=== PATIENT | male | born 1990 | race Caucasian/White ===

== ENCOUNTER 2016-07-19 22:22 | Emergency (ER) | payer SELFPAY ==
[~2016-07-19] VITALS: Ht 177.8 cm; Wt 146.5 kg
[2016-07-19 22:25] VITALS: Ht 177.8 cm; Wt 146.5 kg
[2016-07-19] MEDS ORDERED: ONDANSETRON 4 MG INJ IV STA (23:42)
[2016-07-19] MEDS ORDERED: SOD CHLORIDE 0.9% 1,000 ML IV STA (23:42)
[2016-07-19] MEDS ORDERED: morphine 4 MG/ML VIAL IV STA (23:42)
--- NOTE | 2016-07-20 00:37 | RADRPT ---
PROCEDURE: XR Abdomen. CLINICAL INDICATION: Abdominal pain. TECHNIQUE: AP abdomen x-ray. COMPARISON: None. FINDINGS: The bowel gas pattern is unremarkable. There is no evidence of free air or obstruction. There are no abnormal calcifications overlying the urinary tracts. The osseus structures are unremarkable. The g allbladder is surgically absent. IMPRESSION: No free air or obstruction. RPTAT:AAJJ Kumar Ramirez Physician Date Time Electronically viewed and signed by Physician Gabi on 07/20/2016 00:36 IRAM/
[2016-07-20 01:21] LABS: BASOPHIL # 0.1 10^3/ul (0.0-0.1); BASOPHILS % 0.5 % (0.0-2.0); EOSINOPHILS # 0.1 10^3/ul (0.0-0.5); EOSINOPHILS % 0.8 % (0.0-7.0); HEMATOCRIT 42.6 % (42.0-52.0); HEMOGLOBIN 14.5 g/dl (14.0-18.0); LYMPHOCYTES % 22.3 % (15.0-51.0); MEAN CORPUSCULAR HEMOGLOBIN 26.6 pg (29.0-33.0); MEAN CORPUSCULAR HGB CONC 34.1 g/dl (32.0-37.0); MEAN CORPUSCULAR VOLUME 77.9 fl (82.0-101.0); MONOCYTE # 1.3 10^3/ul (0.3-0.9); MONOCYTES % 9.7 % (0.0-11.0); NEUTROPHILS % 66.7 % (39.0-77.0); PLATELET COUNT 211 10^3/UL (140-440); RED BLOOD COUNT 5.46 10^6/ul (4.70-6.10); RED CELL DISTRIBUTION WIDTH 13.7 % (11.5-14.5); UNCORRECTED WBC 13.5 10^3/ul (4.8-10.8); WHITE BLOOD COUNT 13.5 10^3/ul (4.8-10.8)
--- NOTE | 2016-07-20 01:21 | RADRPT ---
PROCEDURE: CT scan of the abdomen and pelvis without IV contrast. CLINICAL INDICATION: Abdominal pain. TECHNIQUE: Thin section axial, coronal and sagittal images were performed through the abdomen and pelvis without contrast Radiation Dose: CTDI 23.82 mGy and DLP: 1642.28 mGy-cm One of the following dose reduction techni ques were utilized: Automated dense exposure control, adjustment of the mA and/or kV according to p atient's size, use of iterative reconstruction technique COMPARISON: None FINDINGS: CT abdomen: The lung bases are clear and visualized heart and pericardium normal. 5 mm noncalcified left lower l obe pulmonary nodule in the lateral basal segment peripherally. The gallbladder is surgically absent. There is diffuse low attenuation liver suggestive of fatty i nfiltration. The spleen, adrenal glands, and pancreas are normal in size and attenuation without focal lesion. No evidence of intrahepatic biliary ductal dilatation is identified. Normal appearance of the macarena hepatis. The kidneys are normal in size and contour without parenchymal abnormality. No obstructive uropathy. Normal caliber abdominal aorta. Aortic vascular calcification. No retroperitoneal or mesenteric lymp hadenopathy or ascites. Normal caliber bowel without evidence of obstruction. Normal appearance of the bowel mesenteric. CT pelvis: Normal appendix. Extensive sigmoid diverticulosis without mural thickening and extensive surrounding fat stranding an d inflammation compatible with phlegmonous changes in the region secondary to acute diverticulitis. No evidence of abscess or microperforation. No obstruction.. No pelvic sidewall lymphadenopathy o r ascites. No acute inflammatory process. The bladder and remaining intrapelvic contents are unrema rkable. Bones: No lytic or blastic osseous lesion. IMPRESSION: 1. Mural thickening with extensive sigmoid diverticulosis and surrounding inflammatory change chandler tible with acute diverticulitis. 2. No abscess, free air, or bowel obstruction. 4. No other acute intra-abdominal abnormality. Limited noncontrast CT abdomen and pelvis. No RPTAT:AAJJ Physician Gabi Date Time Electronically viewed and signed by Physician Gabi on 07/20/2016 01:21 IRAM/
[2016-07-20 01:26] LABS: ALBUMIN 4.5 g/dl (3.3-4.9)
[2016-07-20 01:27] LABS: POTASSIUM 3.8 mmol/L (3.5-5.1)
[2016-07-20 01:29] LABS: ALBUMIN/GLOBULIN RATIO 1.09; BILIRUBIN,INDIRECT 1.3 mg/dl (0-1.1); BILIRUBIN,TOTAL 1.3 mg/dl (0.2-1.3); TOTAL PROTEIN 8.6 g/dl (6.1-8.1)
[2016-07-20] MEDS ORDERED: CIPROFLOXACIN 500 MG TAB PO ONE (01:30)
[2016-07-20] MEDS ORDERED: metroNIDAZOLE 500 MG TAB PO ONE (01:30)
[2016-07-20 01:41] LABS: CONDITION 1; LH ANALYZER COMMENTS 1
[2016-07-20] MEDS ORDERED: METR500T PO (02:06)
[2016-07-20] MEDS ORDERED: CIPR500T4 PO (02:06)
[2016-07-20 02:24] VITALS: BP 117/63; PULSE 89; RESP 14; TEMP 98.1
--- NOTE | 2016-07-20 04:06 | ERD ---
ER Documentation Chief Complaint Date/Time DATE: 07/20/16 TIME: 04:01 Chief Complaint lower abd pain x 1 day HPI This is a 25-year-old male presenting to the emergency room complaining of moderate to severe bilateral lower abdominal pain since this morning. Patient states that he feels like he is constipated therefore he took a laxative at 2 PM today. He states it was a clear bottle. Patient states that last normal bowel movement was last last night, he had a bowel movement after the laxative but he still felt constipated. Patient denies any nausea, vomiting, diarrhea, fever. He denies taking any other medications today. Denies melena, hematochezia ROS All systems reviewed and are negative except as per history of present illness. Medications Home Meds Active Scripts Ciprofloxacin Hcl* (Ciprofloxacin Hcl*) 500 Mg Tablet, 500 MG PO BID for 7 Days , TAB Prov:CASTRO PINON PA-C 07/20/16 Metronidazole* (Flagyl*) 500 Mg Tablet, 500 MG PO TID for 7 Days, TAB Prov:CASTRO PINON PA-C 07/20/16 Allergies Allergies: Coded Allergies: Penicillins (Verified Allergy, Mild, 11/22/14) PMhx/Soc Medical and Surgical Hx: pt denies Surgical Hx History of Surgery: No Anesthesia Reaction: No Hx Neurological Disorder: No Hx Respiratory Disorders: Yes (ASTHMA) Hx Cardiac Disorders: No Hx Psychiatric Problems: No Hx Miscellaneous Medical Probl: Yes (GALLSTONES) Hx Alcohol Use: No Hx Substance Use: No Hx Tobacco Use: Yes Smoking Status: Former smoker Physical Exam Vitals Vital Signs Date Time Temp Pulse Resp B/P Pulse Ox O2 Delivery O2 Flow Rate FiO2 07/20/16 02:24 98.1 89 14 117/63 99 Room Air 07/19/16 22:25 98.2 94 20 163/76 98 Physical Exam GENERAL: well-developed/well-nourished, in no apparent distress, non-toxic appearing HENT: NC/AT, moist mucous membranes EYES: Conjunctiva normal NECK: Supple, no lymphadenopathy PULM: CTA bilaterally, no rales, rhonchi, or wheezing heard CV: Normal S1S2, RRR, good capillary refill GI: Soft, non-distended, tender to palpation bilateral lower quadrant Normal bowel sounds, no masses or organomegaly felt on exam No gross peritonitis, no bruits Negative Rovsing, negative Cuevas, negative McBurney's point, Negative CVAT BACK: No masses EXT: No clubbing, cyanosis, or edema NEURO: Alert and Orientated SKIN: Intact, normal turgor PSYCH: Normal mood and mentation Result Diagram: 07/20/169907/20/160 Results 24 hrs Laboratory Tests Test 07/20/16 01:00 Alanine Aminotransferase (ALT/SGPT) 80IU/L Albumin 4.5g/dl Albumin/Globulin Ratio 1.09 Alkaline Phosphatase 95IU/L Anion Gap 20 Aspartate Amino Transf (AST/SGOT) 34IU/L Basophils # 0.110^3/ul Basophils % 0.5% Blood Morphology Comment Blood Urea Nitrogen 9mg/dl Calcium Level 9.0mg/dl Carbon Dioxide Level 27mmol/L Chloride Level 98mmol/L Creatinine 1.00mg/dl Direct Bilirubin 0.00mg/dl Eosinophils # 0.110^3/ul Eosinophils % 0.8% Globulin 4.10g/dl Glucose Level 99mg/dl Hematocrit 42.6% Hemoglobin 14.5g/dl Indirect Bilirubin 1.3mg/dl Lipase 42U/L Lymphocytes # 3.010^3/ul Lymphocytes % 22.3% Mean Corpuscular Hemoglobin 26.6pg Mean Corpuscular Hemoglobin Concent 34.1g/dl Mean Corpuscular Volume 77.9fl Mean Platelet Volume 10.0fl Monocytes # 1.310^3/ul Monocytes % 9.7% Neutrophils # 9.010^3/ul Neutrophils % 66.7% Nucleated Red Blood Cells # 0.010^3/ul Nucleated Red Blood Cells % 0.0/100WBC Platelet Count 66036^3/UL Potassium Level 3.8mmol/L Red Blood Count 5.4610^6/ul Red Cell Distribution Width 13.7% Sodium Level 141mmol/L Total Bilirubin 1.3mg/dl Total Protein 8.6g/dl White Blood Count 13.510^3/ul Current Medications Medications (Trade) Dose Ordered Sig/Frankie Route PRN Reason Start Time Stop Time Status Last Admin Dose Admin Sodium Chloride (NS) 1,000 ml @ 1,000 mls/hr Q1H STAT IV 07/19/16 23:42 07/20/16 00:41 DC 07/20/16 00:30 Morphine Sulfate (morphine) 4 mg ONCE STAT IV 07/19/16 23:42 07/19/16 23:43 DC 07/20/16 00:30 Ondansetron HCl (Zofran Inj) 4 mg ONCE STAT IV 07/19/16 23:42 07/19/16 23:43 DC 07/20/16 00:29 Ciprofloxacin (Cipro) 500 mg ONCE ONCE PO 07/20/16 01:30 07/20/16 01:31 DC 07/20/16 01:56 Metronidazole (Flagyl) 500 mg ONCE ONCE PO 07/20/16 01:30 07/20/16 01:31 DC 07/20/16 01:57 Procedures/MDM This is a 25-year-old male presenting to the emergency room complaining of bilateral abdominal pain, likely due to acute diverticulitis without abscess or perforation. Low suspicion for obstruction, peritonitis, bacteremia. IV access was established. Lab work was drawn. CBC did not show any evidence of significant leukocytosis or anemia. WBC was elevated around 13 likely due to stress reaction. CMP did not show any evidence of renal, liver, or electrolyte abnormalities. Lipase was normal. UA did not show any evidence of hemoglobin or urinary tract infection. A CT of the abdomen and pelvis without contrast was done and radiologist stated 1. Mural thickening with extensive sigmoid diverticulosis and surrounding inflammatory change compatible with acute diverticulitis. 2. No abscess, free air, or bowel obstruction. 4. No other acute intra-abdominal abnormality. Limited noncontrast CT abdomen and pelvis. In the ED patient was given morphine, Zofran and the first dose of antibiotics Cipro and Flagyl. Patient is suitable for outpatient management. I reassessed patient any doing a lot better. A prescription for Cipro and Flagyl was given for the next 7 days with precautions to return to the ER for any worsening signs or symptoms. Patient is to follow-up with a primary care physician tomorrow. He understands and agrees with this plan Departure Diagnosis: Primary Impression: Diverticulitis Condition: Stable Patient Instructions: Understanding Diverticulosis and Diverticulitis, Diverticulitis, Diverticulitis Referrals: COMMUNITY CLINICS YOU HAVE RECEIVED A MEDICAL SCREENING EXAM AND THE RESULTS INDICATE THAT YOU DO NOT HAVE A CONDITION THAT REQUIRES URGENT TREATMENT IN THE EMERGENCY DEPARTMENT. FURTHER EVALUATION AND TREATMENT OF YOUR CONDITION CAN WAIT UNTIL YOU ARE SEEN IN YOUR DOCTORS OFFICE WITHIN THE NEXT 1-2 DAYS. IT IS YOUR RESPONSIBILITY TO MAKE AN APPOINTMENT FOR FOLOW-UP CARE. IF YOU HAVE A PRIMARY DOCTOR --you should call your primary doctor and schedule an appointment IF YOU DO NOT HAVE A PRIMARY DOCTOR YOU CAN CALL OUR PHYSICIAN REFERRAL HOTLINE AT IF YOU CAN NOT AFFORD TO SEE A PHYSICIAN YOU CAN CHOSE FROM THE FOLLOWING [facility] [address] [facility] [address] [facility] [address] [facility] [address] [facility] [address] [address] [facility] Amber se yeh hecho un examen mdico de control que le indica que no est en faith condicin que requiera tratamiento urgente en el Departamento de Emergencia. Un estudio ms profundo y el tratamiento de holguin condicin pueden esperar sin ningn riesgo hasta que usted sea atendida/o en el consultorio de holguin mdico o faith cl olaf. Es responsabilidad suya arreglar faith kandy para el seguimiento del moncho. MANEJO DE CONDICIONES NO URGENTES EN EL FUTURO 1) Si usted tiene un mdico de atencin primaria: Usted debera llamar a holguin mdico de atencin primaria antes de venir al departamento de emergencia. Despus de las horas de consultorio, holguin doctor o holguin asociado/a est disponible por telfono. El mdico o enfermero de kristina en el servicio telefnico puede asesorarle por payal medio para atender el problema, o moncho contrario se puede programar faith kandy. 2) Si usted no tiene un mdico de atencin primaria: Llame al mdico o clnica de referencia que aparece abajo louise las horas de consultorio para hacer faith kandy para que le vean. CLINICAS: [facility] [phone] [address] [facility] [phone] [facility] [phone] [facility] [phone] [address] [facility] [phone] [address] [facility] [phone] [address] Additional Instructions: FOLLOW UP WITH YOUR PRIMARY CARE PHYSICIAN TOMORROW.Return to this facility if you are not improving as expected. Take all medicines as directed. Return to this facility if you are not improving as expected. CASTRO PINON PA-C Jul 20, 2016 04:06
== END 2016-07-20 02:25 | disposition home or self-care (01) ==
LOC: FTE 22:22
DX: K57.90 Diverticulosis of intestine, part unspecified, without perforation or abscess without bleeding (principal); J45.909 Unspecified asthma, uncomplicated; Z87.891 Personal history of nicotine dependence
CPT/HCPCS: 36415; 74000; 74176; 80053; 83690; 85025; 96374; 96375; 99285; J2270; J2405; J7030

== ENCOUNTER 2017-05-01 11:54 | Emergency (ER) | payer MEDICAID, OTHER ==
[~2017-05-01] VITALS: Ht 175.3 cm; Wt 136.0 kg
[~2017-05-01 11:54] MED LIST: CIPR500T4 PO; METR500T PO
[2017-05-01 12:04] VITALS: Ht 175.3 cm; Wt 136.0 kg
[2017-05-01] MEDS ORDERED: ALBUTEROL 0.083% (NEB) 2.5 MG/3 ML AMP HHN STA (13:44)
[2017-05-01] MEDS ORDERED: IPRATROPIUM (NEB) 0.5 MG/2.5 ML AMP HHN ONE (14:00)
[2017-05-01] MEDS ORDERED: predniSONE 20 MG TAB PO ONE (14:00)
--- NOTE | 2017-05-01 14:00 | ERD ---
ER Documentation Chief Complaint Chief Complaint ASTHMA EXASCERBATION CWP WHEN COUGHING HPI 26-year-old male with a history of asthma presents with intermittent cough, shortness breath symptoms for 2 weeks. He has had a dry cough with rhinorrhea, sore throat and itchy throat. He has not had any fevers, chills. He presents with a pleuritic sharp chest pain that occurs when he coughs or breathes. He has not had any leg swelling, leg pain, recent travel. ROS All systems reviewed and are negative except as per history of present illness. Medications Home Meds Active Scripts Albuterol Sulfate* (Ventolin HFA*) 18 Gm Hfa.aer.ad, 2 PUFF INHALATION Q4H, #1 INHALER Prov:HIRAL TERRAZAS PA-C 05/01/17 Prednisone* (Prednisone*) 20 Mg Tab, 40 MG PO DAILY for 4 Days, TAB Prov:HIRAL TERRAZAS PA-C 05/01/17 Ciprofloxacin Hcl* (Ciprofloxacin Hcl*) 500 Mg Tablet, 500 MG PO BID for 7 Days , TAB Prov:CASTRO PINON PA-C 07/20/16 Metronidazole* (Flagyl*) 500 Mg Tablet, 500 MG PO TID for 7 Days, TAB Prov:CASTRO PINON PA-C 07/20/16 Allergies Allergies: Coded Allergies: Penicillins (Verified Allergy, Mild, 11/22/14) PMhx/Soc History of Surgery: No Anesthesia Reaction: No Hx Neurological Disorder: No Hx Respiratory Disorders: Yes (ASTHMA) Hx Cardiac Disorders: No Hx Psychiatric Problems: No Hx Miscellaneous Medical Probl: Yes (GALLSTONES) Hx Alcohol Use: No Hx Substance Use: No Hx Tobacco Use: Yes Physical Exam Vitals Vital Signs Date Time Temp Pulse Resp B/P Pulse Ox O2 Delivery O2 Flow Rate FiO2 05/01/17 15:30 98.5 95 18 128/69 96 Room Air 05/01/17 14:01 74 18 96 21 05/01/17 12:04 98.0 87 18 131/69 98 Physical Exam General: Well-developed, well-nourished. The patient appears in no acute distress. HEENT: Head is normocephalic, atraumatic. No scleral icterus. Neck: Supple. Nontender. Lungs: Wheezing bilaterally, no rales, rhonchi. Heart: Regular rate and rhythm. S1 and S2 are normal. No murmurs, gallops, or rubs. Abdomen: Nondistended. Extremities: No clubbing or cyanosis. Moving extremities x 4. No weakness. Neurologic: Alert and oriented 3. No focal deficits. Normal speech and gait. Skin: Normal turgor. No rash or lesions. Results 24 hrs Current Medications Medications (Trade) Dose Ordered Sig/Frankie Route PRN Reason Start Time Stop Time Status Last Admin Dose Admin Albuterol (Proventil 0.083% (Neb)) 5 mg ONCE STAT N 05/01/17 13:44 05/01/17 13:46 DC 05/01/17 13:59 Ipratropium [place] (Atrovent 0.02% (Neb)) 0.5 mg ONCE ONCE HHN 05/01/17 14:00 05/01/17 14:01 DC 05/01/17 13:58 Prednisone (Prednisone) 40 mg ONCE ONCE PO 05/01/17 14:00 05/01/17 14:01 DC 05/01/17 14:06 DIAGNOSTIC IMAGING REPORT Patient: APPLE WHITT : 1990 Age: 26 Sex: M MR #: [id number] DOS: 05/01/17 0000 Ordering MD: HIRAL TERRAZAS PA-C Location: [facility] Room/Bed: PROCEDURE: XR Chest. CLINICAL INDICATION: chest pain, cough TECHNIQUE: Single frontal view of the chest was obtained COMPARISON: None FINDINGS: The heart and mediastinum are within normal limits. The lungs are clear. There is no pleural effusion or pneumothorax. RPTAT: AA IMPRESSION: No acute disease. .Otto William MD, Date Time Electronically viewed and signed by .Otto William MD, on 05/01/2017 15: 19 .S/ CC: HIRAL TERRAZAS PA-C Procedures/MDM Course: Patient was given prednisone 40 mg, albuterol 5 mg breathing treatment Atrovent 0.5 mg. Medical decision makin-year-old male presents with an asthma exacerbation re-auscultation shows clear breath sounds, patient reports no significant improvement of symptoms. Chest x-ray results before negative for intrathoracic disease patient likely presents with an asthma exacerbation is mild, without respiratory distress, hypoxia, signs of PE. Patient will be given prednisone, refill his albuterol is to follow-up with primary care doctor. Departure Diagnosis: Primary Impression: Asthma with acute exacerbation Condition: HIRAL Lambert PA-C May 01, 2017 14:00
--- NOTE | 2017-05-01 15:19 | RADRPT ---
PROCEDURE: XR Chest. CLINICAL INDICATION: chest pain, cough TECHNIQUE: Single frontal view of the chest was obtained COMPARISON: None FINDINGS: The heart and mediastinum are within normal limits. The lungs are clear. There is no pleural effusion or pneumothorax. RPTAT: AA IMPRESSION: No acute disease. .Otto William MD, MD Date Time Electronically viewed and signed by .Otto William MD, on 05/01/2017 15:19 .S/
[2017-05-01] MEDS ORDERED: ALBU18HF INHALATION (15:22)
[2017-05-01] MEDS ORDERED: PRED20TA PO (15:22)
[2017-05-01 15:30] VITALS: BP 128/69; PULSE 95; RESP 18; TEMP 98.5
== END 2017-05-01 15:32 | disposition home or self-care (01) ==
LOC: FTE 11:54
DX: J45.901 Unspecified asthma with (acute) exacerbation (principal); R05 Cough; Z87.891 Personal history of nicotine dependence
CPT/HCPCS: 71010; 94664; J7512; Z7502; Z7610